=== PATIENT | male | born 1990 | race Two or more races ===

== ENCOUNTER 2023-09-18 09:44 | Outpatient (CLI) | payer OTHER, SELFPAY | END 2023-09-18 09:45 | disposition home or self-care (01) | PROVIDERS: PCP Family Medicine; Visit Provider Family Medicine | DX: M25.50 Pain in unspecified joint (principal); R19.7 Diarrhea, unspecified; Z13.21 Encounter for screening for nutritional disorder; Z13.29 Encounter for screening for other suspected endocrine disorder | CPT/HCPCS: 80053; 80061; 82306; 84443; 85651; 86364 ==

== ENCOUNTER 2024-11-17 16:09 | Outpatient (CLI) | payer OTHER, SELFPAY | END 2024-11-17 16:10 | disposition home or self-care (01) | LOC: LKVREF 16:16 | PROVIDERS: PCP Family Medicine; Visit Provider Family Medicine | DX: K51.20 Ulcerative (chronic) proctitis without complications (principal); M25.50 Pain in unspecified joint; F41.9 Anxiety disorder, unspecified; F32.A Depression, unspecified; F90.9 Attention-deficit hyperactivity disorder, unspecified type | CPT/HCPCS: 80053; 80061 ==

== ENCOUNTER 2025-01-08 15:32 | Outpatient (CLI) | payer OTHER, SELFPAY ==
[2025-01-08 21:40] LABS: Amphetamine Screen Urine POSITIVE (Negative); Barbiturate Screen Urine Negative (Negative); Benzodiazepines Screen Urine Negative (Negative); Cannabinoid Screen Urine POSITIVE (Negative); Cocaine Screen Urine Negative (Negative); Methadone Screen Urine Negative (Negative); Methamphetamines Screen Urine Negative (Negative); Opiate Screen Urine Negative (Negative); Oxycodone Screen Urine Negative (Negative); Phencyclidine Screen Urine Negative (Negative); Tricyclic Antidepressant Urine Negative (Negative)
== END 2025-01-08 15:33 | disposition home or self-care (01) ==
LOC: NPINS 15:33
PROVIDERS: PCP Family Medicine; Visit Provider Registered Nurse Psychiatric/Mental Health
DX: F90.9 Attention-deficit hyperactivity disorder, unspecified type (principal)
CPT/HCPCS: 80306